=== PATIENT | female | born 1955 | race Caucasian/White ===

== ENCOUNTER → 2021-03-06 | Outpatient (CLI) | payer MEDICARE, MEDICAID ==
[2021-03-06 15:56] LABS: CALCIUM 9.7 MG/DL (8.5-10.1); CREATININE SERUM 0.77 MG/DL (0.60-1.30); POTASSIUM 4.4 MMOL/L (3.6-5.0)
== END ==
LOC: IHC 14:51
PROVIDERS: ATTEND Physician Assistant
DX: E87.6 Hypokalemia (principal)
CPT/HCPCS: 80048

== ENCOUNTER 2023-03-28 18:24 | Emergency (ER) | payer MEDICARE, MEDICAID ==
[~2023-03-28] VITALS: Ht 162 cm; Wt 68.0 kg
--- NOTE | 2023-03-28 18:33 | ED Upper Extremity ---
General Chief Complaint: Upper Extremity Stated Complaint: R SHOULDER PAIN History of Present Illness Date Seen by Provider: Mar 28, 2023 Time Seen by Provider: 18:33 Initial Comments 67-year-old female presents with pain to her right shoulder following a fall. She had a mechanical fall from a trip and landed on her right shoulder. She has painful range of motion in all directions, no obvious deformity. Allergies and Home Medications Allergies Coded Allergies: No Known Drug Allergies (Unverified , 03/28/23) Patient Home Medication List Home Medication List Reviewed: Yes Review of Systems Constitutional: see HPI Respiratory: no symptoms reported Cardiovascular: no symptoms reported Gastrointestinal: no symptoms reported Musculoskeletal: see HPI Skin: no symptoms reported Psychiatric/Neurological: No Symptoms Reported Physical Exam Vital Signs Vital Signs - First Documented 03/28/23 18:34 Temp 36.3 Pulse 106 Resp 18 B/P (MAP) 151/91 (111) Pulse Ox 95 O2 Delivery Room Air Capillary Refill : Height, Weight, BMI Height: '" Weight: lbs. oz. kg; BMI Method: General Appearance: WD/WN, no apparent distress Cardiovascular: normal peripheral pulses, regular rate, rhythm Respiratory: lungs clear Shoulder: No deformity; limited ROM (Due to pain), soft tissue tenderness Elbow/Forearm: normal inspection Wrist: Yes normal inspection Hand: normal inspection Progress/Results/Core Measures Results/Orders My Orders Orders - EMANUEL DUNN DO Shoulder 3 View Right (03/28/23 18:35) Ketorolac Injection (Ketorolac Injection (03/28/23 18:35) Ed Ortho/Other Supplies Order (03/28/23 18:50) Vital Signs/I&O 03/28/23 18:34 Temp 36.3 Pulse 106 Resp 18 B/P (MAP) 151/91 (111) Pulse Ox 95 O2 Delivery Room Air Progress Progress Note : Progress Note Patient's x-ray was ordered reviewed with initial interpretation negative by me with final interpretation per radiology report. No acute abnormality was noted. Patient placed in a sling for comfort. Recommend she follow-up with her primary care provider and photographic specialist in 1 week if symptoms or not improving for repeat evaluation. Diagnostic Imaging Diagonstic Imaging: Xray Plain Films/CT/US/NM/MRI: other Comments Date of Exam:03/28/23 SHOULDER 3 VIEW RIGHT EXAMINATION: Right shoulder radiograph EXAM DATE: 03/28/2023 6:46 PM COMPARISON: None available. HISTORY: Right shoulder pain TECHNIQUE: 3 views FINDINGS: There is no acute fracture, dislocation, or destructive osseous process. The joint spaces are normal. The soft tissues are normal. IMPRESSION: 1. No acute osseous abnormality. Reviewed: Reviewed by Me, Reviewed/Discussed Departure Impression Primary Impression: Sprain of shoulder, right Qualified Codes: S43.401A - Unspecified sprain of right shoulder joint, initial encounter Disposition: HOME, SELF-CARE Condition: Stable Departure-Patient Inst. Referrals: NO,LOCAL PHYSICIAN (PCP/Family) Primary Care Physician Patient Instructions: Shoulder Sprain (DC) Add. Discharge Instructions: Gentle stretching of your right shoulder. Tylenol, ibuprofen, topical lidocaine with menthol and topical Voltaren cream as directed on package. Follow-up with your primary care provider or photographic specialist in 7 to 10 days if your symptoms or not improving or continue to worsen. All discharge instructions reviewed with patient and/or family. Voiced understanding. EMANUEL DUNN DO Mar 28, 2023 18:33
[2023-03-28 18:34] VITALS: BP 151/91
[2023-03-28] MEDS ORDERED: KETOROLAC INJ 30 MG/ML VIAL IM STA (18:35)
--- NOTE | 2023-03-28 18:48 | Diagnostic Imaging Report ---
EXAMINATION: Right shoulder radiograph EXAM DATE: 03/28/2023 6:46 PM COMPARISON: None available. HISTORY: Right shoulder pain TECHNIQUE: 3 views FINDINGS: There is no acute fracture, dislocation, or destructive osseous process. The joint spaces are normal. The soft tissues are normal. IMPRESSION: 1. No acute osseous abnormality. Dictated by: Dictated on workstation # [id number]
== END 2023-03-28 18:57 | disposition home or self-care (01) ==
LOC: EDUNIT# 18:24 → ER FS 18:26
DX: S43.401A Unspecified sprain of right shoulder joint, initial encounter (principal); W01.0XXA Fall on same level from slipping, tripping and stumbling without subsequent striking against object, initial encounter
CPT/HCPCS: 73030; 99284